=== PATIENT | male | born 2005 | race Caucasian/White ===

== ENCOUNTER 2024-06-23 14:12 | Emergency (ER) | payer OTHER, SELFPAY ==
[2024-06-23 14:16] VITALS: BP 148/96
--- NOTE | 2024-06-23 15:42 | ED.GENMED ---
History of Present Illness
General
Chief Complaint: Crisis Evaluation
Source: patient and family (Mother at bedside)
Exam Limitations: none
Time Seen by Provider: 06/23/24 15:04
Nursing documentation reviewed up to this point in time: agreed with
History of Present Illness
History of Present Illness:
18-year-old male with history of depression presenting to the emergency department with mom for crisis evaluation. Patient reports ongoing history of depression for many years although acute worsening this [place]. Patient's father apparently
was found to be using drugs and brought out of the home. Patient states that his dad was 'his best friend 'and he is very sad that he is no longer around. Yesterday�mom found patient in bedroom threatening to harm himself with a knife. Patient
does report suicidal thoughts over the past few days although has no intention on acting on these thoughts.
Apparently, mobile crisis evaluated patient last night and recommended intensive outpatient full-day therapy although there were no beds available. Today patient was evaluated by psychiatrist at [facility] and referred to the emergency
department for inpatient treatment.
On discussion with patient�he denies any current suicidal thoughts or ideations. No homicidal ideations. He does state he occasionally hears voices telling him to 'do bad things'. Patient denies any alcohol or drug use. He does feel safe at
home.
Review of Systems
Review of Systems
Allergies reviewed?: Yes
All Other Systems: ROS reviewed and negative except as documented in HPI and ROS
Phy Exam
Physical Exam
Physical Exam:
Vitals: Hypertensive, otherwise stable vital sings. Afebrile
General: Patient is well appearing, no acute distress
Skin: Warm and dry, no rashes or lesions
Head: Normocephalic, atraumatic
Eyes: Sclera nonicteric.
Throat: Protecting airway
Neck: Normal ROM
Cardiac: Regular rate and rhythm, no murmurs.
Pulm: In no apparent respiratory distress
Abdomen: No abdominal tenderness.
Extremities: No evidence of cyanosis or edema
Neuro: AAOx3. Grossly intact
Psychiatric: Well-kept. Cooperative with exam, answers questions. Directed speech. Not responding to internal stimuli.
Course
Orders/Labs/Results
Orders:
Orders
06/23/24 14:16
1:1 Observation - Suicide/ Violent Behavior As Directed
Crisis Consult Urgent
Reason for Consult: suicidal ideation
Vital Signs
Initial and Last Documented VS:
Initial Vital Signs
Temp Pulse Resp BP Pulse Ox
98.2 F 78 18 148/96 99
06/23/24 14:16 06/23/24 14:16 06/23/24 14:16 06/23/24 14:16 06/23/24 14:16
Last Documented Vital Signs
Temp Pulse Resp BP Pulse Ox
98.2 F 78 18 148/96 99
06/23/24 14:16 06/23/24 14:16 06/23/24 14:16 06/23/24 14:16 06/23/24 14:16
MDM/Problems Addressed
Differential Diagnosis Includes:
Not limited to: depression, suicidal ideations, acute psychosis
MDM/Problems Addressed:
18-year-old male presenting with significant history of depression presenting with suicidal ideations�referred by psychiatrist for inpatient placement. Patient mildly hypertensive, otherwise with stable vital signs. Physical exam as above. Would
not deem patient acutely suicidal however do feel patient would benefit from inpatient treatment given worsening depressive thoughts. Psychiatrist believes patient will benefit from inpatient treatment as well as medication adjustments and further
mental health treatment. Patient is agreeable to placement in inpatient mental health facility. Evaluated by crisis. Disposition pending bed placement.
Update: Patient accepted at [facility] for inpatient treatment. Patient medically cleared for inpatient mental health treatment.
Chronic conditions affecting care:
Depression
Acute Exacerbation and/or Progression of Chronic Illness:
Depression, suicidal ideations
*Pulse Oximetry
Patient hypoxic: no
*EKG
Interpreted by ED Provider?: NA
*Urban Sociologist Interpretation
Rate: Urban Sociologist- N/A
*Critical Care Note
Total Time (30-74mins, 75-104mins- exclusive of procedures): Not Applicable
ED Attending Note
-
Portions of this chart may have been created with voice recognition software.� Occasional wrong word or��sound alike� substitutions may have occurred due to the inherent limitations of voice recognition software.
Discharge Plan
Departure
Patient Disposition: Psych Facility
Date of Disposition: 06/23/24
Time of Disposition: 19:43
Patient with high blood pressure during this ER visit?: Yes
Discharge Problem:
Suicidal ideation
Referrals:
UNKNOWN - PT NOT,INTERVIEWE [Family Provider] -
Activity Restrictions/Additional Instructions:
Return to the emergency department with any thoughts of harming yourself or others, visual/auditory hallucinations, or any other concerns
Patient medically cleared for inpatient psychiatric treatment
Interventions
Interventions:
*Risk Screen - Suicide Last Done: 06/23/24 14:14
*General Assessment Last Done: 06/23/24 20:01
*Neglect/Abuse Screening Last Done: 06/23/24 20:01
ED- Fall Risk Assessment Last Done: 06/23/24 21:05
*ED COVID-19 Vaccine History Last Done: 06/23/24 20:01
*Nursing Disposition Last Done: 06/23/24 21:05
ED-Psychological Assessment Last Done: 06/23/24 17:31
Discharge Date and Time
Discharge Date/Time: 06/23/24 21:33
Print Language: SPANISH
== END 2024-06-23 21:33 ==
LOC: EMR 14:12
PROVIDERS: EMERGENCY PHYSICIAN Emergency Medicine
DX: F32.A Depression, unspecified (principal); R45.851 Suicidal ideations
CPT/HCPCS: 99285

== ENCOUNTER 2024-07-09 19:26 | Emergency (ER) | payer OTHER, SELFPAY ==
[2024-07-09 19:28] VITALS: BP 133/92
[2024-07-09] MEDS: TORADOL 30 MG IV (20:20)
[2024-07-09 20:25] LABS: Urine Albumin 2+ (Neg - Trace); Urine Bilirubin Negative (Negative); Urine Character Clear (Clear); Urine Color Yellow; Urine Glucose Negative (Negative); Urine Ketone Negative (Negative); Urine Leukocyte Negative (Negative); Urine Nitrite Negative (Negative); Urine Occult Blood 1+ (Negative); Urine Specific Gravity 1.015 (<1.030); Urine Urobilinogen Negative (Neg - 1+)
[2024-07-09 20:26] LABS: % Basophils 0.2 % (0-2); % Eosinophils 2.3 % (0-6); % Lymphocytes 23.3 % (20.5-51.1); % Neutrophils 64.2 % (42.2-75.2); Absolute Eosinophils 0.2 10^3/uL (0-0.7); Absolute Immature Granulocytes 0.1 10^3/uL (0-0.05); Absolute Monocytes 0.8 10^3/uL (0.1-0.6); Absolute Neutrophils 5.4 10^3/uL (1.4-6.5); Hematocrit 46.5 % (39.0-52.0); Hemoglobin 15.6 g/dL (13.0-18.0); Mean Corp Hgb Conc. 33.5 g/dL (33.0-37.0); Mean Corpuscular Hgb 28.8 pg (27.0-31.0); Mean Platelet Volume 9.6 fL (7.4-10.4); Nucleated Red Blood Cells % 0 % (-); Platelet Count 276 10^3/uL (130-400); Red Blood Cell Count 5.41 10^6/uL (4.70-6.10); Red Cell Dist. Width 13.1 % (11.5-14.5); White Blood Cell Count 8.4 10^3/uL (4.8-10.8)
[2024-07-09 20:37] LABS: Urine Squamous Cell 0-2 /LPF (Few)
[2024-07-09 20:38] LABS: Urine Bacteria Few (Negative); Urine White Cell 0-2 /HPF (0-5)
[2024-07-09 20:39] LABS: Urine Mucus Few; Urine Sperm Seen
[2024-07-09 20:43] LABS: ALT (SGPT) 73 U/L (0-50); AST (SGOT) 29 U/L (17-59); Albumin 5.4 g/dl (3.5-5.0); Alkaline Phosphatase 119 U/L (38-126); Blood Urea Nitrogen 18 mg/dl (9-20); Calcium 10.2 mg/dl (8.4-10.2); Carbon Dioxide 30 mmol/L (22-30); Chloride 97 mmol/L (98-107); Glucose 94 mg/dl (70-99); Potassium 4.2 mmol/L (3.5-5.1); Sodium 137 mmol/L (135-145); Total Bilirubin 0.7 mg/dl (0.2-1.3); Total Protein 8.4 g/dl (6.3-8.2); eGFR > 60.00
--- NOTE | 2024-07-09 21:56 | ED.GENMED ---
History of Present Illness
General
Chief Complaint: Flank Pain
Source: patient and family
Exam Limitations: none
Time Seen by Provider: 07/09/24 19:43
History of Present Illness
History of Present Illness:
Patient to ED wtih complaint of left flank pain. Pain started today. Denies fever/chills. No n/v/d. Brought to ED by mother for eval.
Past History
Past History
ED Past Medical History: Other (autism)
Review of Systems
Review of Systems
Allergies reviewed?: Yes
All Other Systems: ROS reviewed and negative except as documented in HPI and ROS
Constitutional: Reports no symptoms
EENT: Reports no symptoms
Respiratory: Reports no symptoms
Cardiac: Reports no symptoms
ABD/GI: Reports no symptoms
: Reports flank pain (left flank pain)
Musculoskeletal: Reports no symptoms
Skin: Reports no symptoms
Neurological: Reports no symptoms
Psychiatric: Reports no symptoms
Phy Exam
General Physical Exam
General Presentation: well appearing and no apparent distress
General age: appears stated age
General Skin: warm and dry
General Habitus: normal
General Mental: alert
Cardiovascular Exam
Cardiovascular Exam: regular rate/rhythm
Pulmonary Exam
Pulmonary Exam: lungs clear and no respiratory distress
Gastrointestinal Exam
Gastrointestinal Exam: normal bowel sounds, soft, no organomegaly, no pulsatile mass, non distended and no cva tenderness
Palpation: left upper quadrant: Minimal tenderness, left lower quadrant: Minimal tenderness, right upper quadrant: No tenderness and right lower quadrant: No tenderness
Musculoskeletal Exam
Musculoskeletal Exam: full ROM and neuro vasc intact
Skin Exam
Skin Exam: normal color, warm/dry and no rash
Psychiatric Exam
Psychiatric Exam: normal mood/affect
Course
Orders/Labs/Results
Orders:
Orders
07/09/24 20:04
Ketorolac [Toradol] 30 mg IV NOW STA
07/09/24 20:18
CMP [Comprehensive Metabolic Panel] Stat
Complete Blood Count/With Diff Urgent
07/09/24 20:19
Urinalysis Reflex To Culture Urgent
Date Specimen was Collected: 07/09/24
Time Specimen was Collected: 19:46
Urine Microscopic Reflex Cult Urgent
07/09/24 20:30
CT Abd/pel Without Iv Or Oral Urgent
Comment:
Reason For Exam: flank pain
Abnormal Lab Results
07/09/24 07/09/24
20:18 20:19
Abs Immat Gran (auto) 0.1 H 10^3/uL
(0-0.05)
Absolute Monos (auto) 0.8 H 10^3/uL
(0.1-0.6)
Immature Gran % 1.0 H %
(0-0.5)
Chloride 97 L mmol/L
(98-107)
ALT 73 H U/L
(0-50)
Total Protein 8.4 H g/dl
(6.3-8.2)
Albumin 5.4 H g/dl
(3.5-5.0)
Ur Occult Blood Reflex 1+ A
(Negative)
Urine RBC 7-10 A /HPF
(0-2)
Urine Bacteria (Reflex) Few A
(Negative)
Urine Albumin (Reflex) 2+ A
(Neg - Trace)
07/09/24 20:18
07/09/24 20:18
Vital Signs
Initial and Last Documented VS:
Initial Vital Signs
Temp Pulse Resp BP Pulse Ox
98.5 F 104 16 133/92 99
07/09/24 19:28 07/09/24 19:28 07/09/24 19:28 07/09/24 19:28 07/09/24 19:28
Last Documented Vital Signs
Temp Pulse Resp BP Pulse Ox
98.5 F 95 16 120/67 98
07/09/24 19:28 07/09/24 21:58 07/09/24 21:58 07/09/24 21:58 07/09/24 21:58
*Radiology
Radiology exam reviewed: radiology read reviewed
*Pulse Oximetry
Patient hypoxic: no
*Critical Care Note
Total Time (30-74mins, 75-104mins- exclusive of procedures): Not Applicable
Update Note
Update Note:
Patient to ED for eval of left flank pain. Labs reviewed. WBC, BUN, Creat all normal. UA with +1 heme, no evidence of UTI. CT neg for evidence of renal stones. No findings to explain his pain. VSS, he remains afebrile. No vomiting. Will
discharge home, close follow up wtih PCP. Given instructions for s/s to rturn to ED and he is agreeable to plan.
ED Attending Note
-
Portions of this chart may have been created with voice recognition software.� Occasional wrong word or��sound alike� substitutions may have occurred due to the inherent limitations of voice recognition software.
Discharge Plan
Departure
Patient Disposition: Home (Routine Discharge)
Date of Disposition: 07/09/24
Time of Disposition: 21:55
Patient with high blood pressure during this ER visit?: No
Condition: Good
Covid-19: Not Applicable
Discharge Problem:
Acute flank pain
Instructions: Flank Pain (DC)
Referrals:
UNKNOWN - PT DOES,NOT KNOW [Family Provider] -
Activity Restrictions/Additional Instructions:
Follow up with your family doctor. Return to the emergency department immediately for fever/chills, increasing pain, vomiting, or for any further concerns.
Interventions
Interventions:
*Risk Screen - Suicide Last Done: 07/09/24 19:28
*General Assessment Last Done: 07/09/24 19:28
*Neglect/Abuse Screening Last Done: 07/09/24 19:28
*ED- Fall Risk Assessment Last Done: 07/09/24 22:01
*ED COVID-19 Vaccine History Last Done: 07/09/24 19:28
*Nursing Disposition Last Done: 07/09/24 22:01
BD-Rmgjyz-Jnertaqzaq Assessment Last Done: 07/09/24 20:24
ED-Male Genitourinary Assessment Last Done: 07/09/24 20:24
Discharge Date and Time
Discharge Date/Time: 07/09/24 22:03
Print Language: TURKISH
[2024-07-09 21:58] VITALS: BP 120/67
== END 2024-07-09 22:03 | disposition home or self-care (01) ==
LOC: EMR 19:26
PROVIDERS: Nurse Practitioner; EMERGENCY PHYSICIAN Emergency Medicine
DX: R10.9 Unspecified abdominal pain (principal); F84.0 Autistic disorder
CPT/HCPCS: 96374; 99284; 74176; 80053; 81003; 81015; 85025

== ENCOUNTER 2024-12-19 19:17 | Emergency (ER) | payer OTHER, SELFPAY ==
[2024-12-19 19:26] VITALS: BP 153/96
--- NOTE | 2024-12-19 19:41 | ED.GENMED ---
History of Present Illness
General
Chief Complaint: Crisis Evaluation
Source: patient and family
Exam Limitations: none
Time Seen by Provider: 12/19/24 19:31
History of Present Illness
History of Present Illness:
19yoM with a history of autism presenting with his mother for psychiatric evaluation. Patient was at [facility] in June for psychosis. Mother reports that he has never fulled bounced back since then. He had an argument with his father
last week in which his father was yelling at him. Father is reportedly an alcoholic and was drinking all week at the home last week while the rest of the family was on vacation. He has been increasing depressed since then and has not been getting
out of bed or eating. He took 2 knives from his mother's room today and told family that he was suicidal with plan to stab himself. At one point, he grabbed a kitchen knife and family had to restrain him to take it away. He did not actually hurt
himself. Mother spoke with his therapist and mobile crisis was called to the home. He was sent to the ED for inpatient treatment.
Past History
Past History
ED Past Medical History: Other (autism)
Phy Exam
General Physical Exam
General Presentation: well appearing and no apparent distress
General Skin: warm and dry
General Habitus: normal
General Mental: alert
ENT Exam
ENT Exam: normocephalic
Pulmonary Exam
Pulmonary Exam: no respiratory distress
Neurological Exam
Neurological Exam: alert
Daisy Coma Scale
Eye Opening: Spontaneous
Verbal Response: Oriented
Motor Response: Obeys Commands
GCS Total Score: 15
Skin Exam
Skin Exam: normal color and warm/dry
Psychiatric Exam
Psychiatric Exam: depressed and other (+SI with plan. Cooperative.)
Course
Orders/Labs/Results
Orders:
Orders
12/19/24 19:40
1:1 Observation - Suicide/ Violent Behavior As Directed
Crisis Consult Urgent
Reason for Consult: suicidal
12/19/24 19:42
1:1 Observation - Suicide/ Violent Behavior As Directed
Crisis Consult Urgent
Reason for Consult: SI with plan
12/19/24 20:12
Complete Blood Count/With Diff Urgent
Comprehensive Metabolic Panel Urgent
Urine Drug Abuse Screen Urgent
Date Specimen was Collected: 12/19/24
Time Specimen was Collected: 19:53
Abnormal Lab Results
12/19/24
20:12
Absolute Neuts (auto) 6.7 H 10^3/uL
(1.4-6.5)
Absolute Lymphs (auto) 1.1 L 10^3/uL
(1.2-3.4)
Neutrophils % 80.3 H %
(42.2-75.2)
Lymphocytes % 13.1 L %
(20.5-51.1)
Glucose 128 H mg/dl
(70-99)
ALT 57 H U/L
(0-50)
Albumin 5.2 H g/dl
(3.5-5.0)
12/19/24 20:12
12/19/24 20:12
Vital Signs
Initial and Last Documented VS:
Initial Vital Signs
Temp Pulse Resp BP Pulse Ox
98.9 F 101 18 153/96 99
12/19/24 19:26 12/19/24 19:26 12/19/24 19:26 12/19/24 19:26 12/19/24 19:26
Last Documented Vital Signs
Temp Pulse Resp BP Pulse Ox
98.9 F 101 18 153/96 99
12/19/24 19:26 12/19/24 19:26 12/19/24 19:26 12/19/24 19:26 12/19/24 19:26
MDM/Problems Addressed
Differential Diagnosis Includes:
19yoM presenting for psych eval. Hx of autism. SI with plan and patient tried to hurt himself with knives earlier today but family stopped him. Sent in by mobile crisis for inpatient treatment. Patient cooperative during assessment. Patient
medically cleared for inpatient psychiatric treatment.
Labs obtained per crisis request which are unremarkable. UDS negative. Patient agrees to sign in voluntarily and was accepted at [facility]. Patient signed out at shift change awaiting transportation.
*Pulse Oximetry
Patient hypoxic: no (99%)
*Critical Care Note
Total Time (30-74mins, 75-104mins- exclusive of procedures): Not Applicable
ED Attending Note
-
Portions of this chart may have been created with voice recognition software.� Occasional wrong word or��sound alike� substitutions may have occurred due to the inherent limitations of voice recognition software.
Discharge Plan
Departure
Patient Disposition: Psych Facility
Date of Disposition: 12/19/24
Time of Disposition: 22:34
Discharge Problem:
Suicidal ideations
Referrals:
UNKNOWN - PT DOES,NOT KNOW [Family Provider]
Interventions
Interventions:
*Risk Screen - Suicide Last Done: 12/19/24 19:26
*General Assessment Last Done: 12/19/24 19:26
*Neglect/Abuse Screening Last Done: 12/19/24 19:26
*ED- Fall Risk Assessment Last Done: 12/19/24 20:29
*ED COVID-19 Vaccine History Last Done: 12/19/24 20:29
ED-Psychological Assessment Last Done: 12/19/24 20:29
Discharge Date and Time
Print Language: CROATIAN
[2024-12-19 20:24] LABS: Hematocrit 46.3 % (39.0-52.0); Hemoglobin 15.9 g/dL (13.0-18.0); Mean Corp Hgb Conc. 34.3 g/dL (33.0-37.0); Mean Corpuscular Volume 84.2 fL (80.0-94.0); Nucleated Red Blood Cells % 0 % (-); Platelet Count 225 10^3/uL (130-400); Red Cell Dist. Width 12.9 % (11.5-14.5)
[2024-12-19 20:41] LABS: ALT (SGPT) 57 U/L (0-50); AST (SGOT) 32 U/L (17-59); Albumin 5.2 g/dl (3.5-5.0); Alkaline Phosphatase 87 U/L (38-126); Blood Urea Nitrogen 13 mg/dl (9-20); Calcium 9.2 mg/dl (8.4-10.2); Carbon Dioxide 24 mmol/L (22-30); Chloride 103 mmol/L (98-107); Glucose 128 mg/dl (70-99); Potassium 4.4 mmol/L (3.5-5.1); Sodium 138 mmol/L (135-145); Total Protein 8.2 g/dl (6.3-8.2); eGFR > 60.00
== END 2024-12-20 03:00 ==
LOC: EMR 19:17
PROVIDERS: Physician Assistant; EMERGENCY PHYSICIAN Emergency Medicine
DX: R45.851 Suicidal ideations (principal); F84.0 Autistic disorder
CPT/HCPCS: 99285; 80053; 80306; 85025